=== PATIENT | female | born 1955 | race African-American/Black ===

== ENCOUNTER → 2017-06-01 | Day surgery (SDC) | payer BC ==
--- NOTE | 2017-06-01 09:17 | MMO ---
SPECIMEN RADIOGRAPH: Date: 06/01/17 HISTORY: Increasing breast calcification noted on recent mammogram recommended for biopsy. FINDINGS: Specimen radiograph confirms the presence of calcifications. IMPRESSION: Calcifications confirmed on breast specimen. POS: [facility]
--- NOTE | 2017-06-01 09:19 | MMO ---
LEFT UNILATERAL MAMMOGRAM: Date: 06/01/17 HISTORY: Patient is status post stereotactic biopsy of breast calcifications. This was done for evaluation of clip placement. FINDINGS: Previous mammograms were performed at [facility], where there was felt to be increasing calc ifications within the left breast. In particular, some of the calcifications in the more anterior asp ect of the breast were felt to be more increased in number and this was the area recommended for biop sy. The post biopsy mammogram shows clip deployment in good position in the area of concern. IMPRESSION: Successful clip deployment. POS: [facility]
--- NOTE | 2017-06-01 09:23 | MMO ---
STEREOTACTIC LOCALIZATION AND PERCUTANEOUS BIOPSY OF LEFT BREAST CALCIFICATIONS: Date: 06/01/17 HISTORY: Increasing number of calcifications were noted in a more regional distribution within the left breast . The main increase in number of calcifications was felt to be in an area slightly more anterior with in the breast and this was the area recommended for biopsy. COMPARISON: Outside mammograms done at [place] dated 06/23/14 and 04/17/17. TECHNIQUE/FINDINGS: After review of the images, medial approach of the biopsies was chosen. The patient was prepped in th e normal sterile fashion. Local anesthesia was obtained with 1% Xylocaine mixed with sodium bicarb. A small skin incision was made with a #11 scalpel blade. A 10 gauge vacuum-assisted biopsy needle was used for the biopsy. Pre and post-fire image showed good position of the needle. Biopsies were obtain ed at the 12, 2, 4, 6, 8, and 10 o'clock positions. SPECIMEN RADIOGRAPH: Specimen radiograph confirms the presence of breast calcifications. CLIP DEPLOYMENT: Biopsy clip was deployed. Post biopsy mammogram showed good positioning of the clip within the area o f concern. Hemostasis was obtained without difficulty. There were no immediate complications of the procedure. IMPRESSION: Successful stereotactic biopsy of left breast calcifications. POS: [facility]
== END ==
LOC: MAMMO 06:49
PROVIDERS: ATTEND Obstetrics & Gynecology
PROC: 0HBU3ZX Excision of Left Breast, Percutaneous Approach, Diagnostic (ICD-10-PCS; principal; 2017-06-01)
DX: N60.82 Other benign mammary dysplasias of left breast (principal)
CPT/HCPCS: 19081; 76098; 88305; G0206-LT